=== PATIENT | female | born 1960 | race Caucasian/White ===

== ENCOUNTER 2022-12-27 10:43 | Emergency (ER) | payer OTHER ==
[~2022-12-27] VITALS: Ht 162.6 cm; Wt 72.6 kg
[2022-12-27 10:45] VITALS: O2SAT 98
== END 2022-12-27 11:40 | disposition home or self-care (01) ==
LOC: ER 10:43
DX: S63.502A Unspecified sprain of left wrist, initial encounter (principal); S93.505A Unspecified sprain of left lesser toe(s), initial encounter; S00.83XA Contusion of other part of head, initial encounter; W18.39XA Other fall on same level, initial encounter; Y93.89 Activity, other specified; Y92.89 Other specified places as the place of occurrence of the external cause; Y99.8 Other external cause status
CPT/HCPCS: 70450; 73110; 73630; A4663